=== PATIENT | male | born 2000 | race Caucasian/White ===

== ENCOUNTER 2021-07-19 00:28 | Inpatient (IN) ==
[2021-07-19] MEDS ORDERED: FAMOTIDINE 20MG IV PUSH 20 MG/5 ML SYR IV STA (00:52)
[2021-07-19] MEDS ORDERED: ONDANSETRON INJ 2 MG/ML 2 ML VIAL IV STA (00:52)
[2021-07-19 01:08] LABS: Basophils # (auto) 0.01 K/uL (0-0.2); Basophils % (auto) 0.1 %; Eosinophils # (auto) 0.08 K/uL (0-0.5); Eosinophils % (auto) 0.8 %; Hematocrit (blood only) 47.7 % (42-52); Hemoglobin 16.4 g/dL (14.0-18.0); Immature Granulocytes # (auto) 0.02 K/uL (0.00-0.02); Immature Granulocytes % (auto) 0.2 %; Lymphocytes # (auto) 2.23 K/uL (1.2-3.4); Lymphocytes % (auto) 21.3 %; Mean Corpuscular Hemoglobin 28.9 pg (25-34); Mean Corpuscular Hgb Conc 34.4 g/dL (32-36); Mean Platelet Volume 9.3 fL (7.4-10.4); Monocytes # (auto) 0.81 K/uL (0.11-0.59); Monocytes % (auto) 7.7 %; Neutrophils # (auto) 7.34 K/uL (1.4-6.5); Neutrophils % (auto) 69.9 %; Platelet Count 232 K/uL (130-400); RDW Coefficient of Variation 12.9 % (11.5-14.5); RDW Standard Deviation 38.8 fL (36.4-46.3); Red Blood Count 5.68 M/uL (4.7-6.1); White Blood Count 10.49 K/uL (4.8-10.8)
[2021-07-19] MEDS: HYDROmorphone INJ 0.5 MG/0.5 ML SYR IV STA ×2 (01:16→01:22)
--- NOTE | 2021-07-19 01:37 | Emergency Department Note ---
Impression & Plan Acute pancreatitis Admit to the [facility] service ED Provider Note NAME: NAIMA WALSH AGE: 20 SEX: M ARRIVES VIA: Walk-In INFORMANT: Patient ED PROVIDER(S): Iliana Farmer DO CHIEF COMPLAINT: Abdominal pain PLAN: Disposition: Admit to the [facility] service Condition: Guarded MEDICAL DECISION MAKING: This is a 20-year-old male patient who presents to the emergency department with right upper quadrant abdominal pain and epigastric pain. Patient was given IV Pepcid, Zofran and Dilaudid. Patient was bolused with IV normal saline solution. Laboratory studies showed evidence of an elevated lipase. He went for CT scan of the abdomen/pelvis to r ule out the possibility of pancreatitis. CT scan revealed evidence of necrotizing pancreatitis. The patient was kept n.p.o. He was started on a normal saline drip. A lactate was ordered. [facility]. Triage Nursing notes reviewed and agree with them. Vital Signs: reviewed and remarkable for hypertension Differential diagnosis: Pancreatitis, cholecystitis, gastritis, ulcerative disease ER treatment provided: IV Zofran IV Pepcid IV Dilaudid Diagnostics interpreted by me: Cardiac Monitoring: Normal sinus rhythm at 68 Laboratory studies: See below Imaging studies: As per stat rad Diffuse peripancreatic stranding surrounding the necrotic head and uncinate process. Mildly decreased attenuation of the proximal body. Additional mild hypoattenuation within the head and uncinate process which may be due to interstitial fluid. Findings are concerning for acute pancreatitis, possibly ne crotizing pinker toes. Consider multiphasic imaging or MRI. Patent splenic vein. Duodenal thickening with submucosal hyperenhancement, likely reactive. Fluid noted layering anteriorly along the right renal fascia. This is likely reactive. Normal appendix. No other acute findings. HPI: 20/M arrives for evaluation of right upper quadrant abdominal pain and epigastric pain. He describes waking up yesterday morning with some epigastric abdominal pain and nausea. He went to class and had to leave class early because of the symptoms and then vomited. Throughout the day, the patient had a decreased appetite. Patient does admit that he had 7 or 8 beers on Sunday night but did not vomit and this was not out of the ordinary for him. He describes having a similar episode of upper abdominal pain approximately 2 years ago for which he was seen in the emergency department. At that time, he had a CT scan which showed evidence of gastritis. ROS: See above HPI for pertinent positives & negatives. A total of 10 systems reviewed and were otherwise negative. PAST MEDICAL HISTORY:Gastritis; the patient tells me that he has recently lost 65-70 pounds in the past 9 months as he was trying to; he has a history of hypertension. 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 He occasionally drinks alcohol. HOME MEDICATIONS:Multivitamin ALLERGIES:None VITALS:See Below PHYSICAL EXAMINATION: HEENT: Head - normocephalic and atraumatic Pupils are equal, round, and reactive to light. Extraocular eye muscles are intact, and sclera are anicteric. Nose - moist nasal mucosa without discharge. Mouth - moist buccal mucosa. Oropharynx is nonerythematous and there is no tonsillar exudate or edema noted. Neck: Supple; no JVD, nuchal rigidity, cervical lymphadenopathy, or auscultated bruits. Heart: Regular rate and rhythm. There is a normal S1 and S2 with no murmurs, clicks, or gallops appreciated. Lungs: Clear to auscultation bilaterally with no wheezes, rales, or rhonchi. Abdomen: Soft, moderate tenderness to palpation in the epigastrium and right upper quadrant. The rest of the abdomen is nondistended, with good bowel sounds. There are no palpable pulsatile masses or hepatosplenomegaly. There is no guarding, rigidity, or rebound noted. Extremities: No evidence of cyanosis, clubbing, or edema. There are easily palpable peripheral pulses. Skin: warm and dry with good turgor and no rashes. ED COURSE: Times/Reassessments: 0040: The patient was evaluated in room A9. A complete history and physical was performed. The patient was medicated with IV Pepcid, IV Zofran, and IV Dilaudid. The patient was given a 1 L bolus of IV normal saline solution. He will go for CT scan of the abdomen/pelvis. The patient was feeling somewhat better. I reviewed the results of the CT scan with the patient. He will be kept n.p.o. He was started on a normal saline drip. A lactic acid was ordered. I discussed the case with the [facility] hospitalist and they will evaluate for further management. Iliana Farmer DO Past Med/Surg History Social History Smoking Status: Never smoker Preferred Language: Romanian Feels Safe at Home: Yes Allergies Allergies Allergy/AdvReac Type Severity Reaction Status Date / Time No Known Allergies Allergy Verified 07/19/21 00:38 Home Meds Home Medications Medication Instructions Recorded Confirmed multivitamin 1 tab PO DAILY 07/19/21 07/19/21 Results & Data (ED) Vital Signs Vital Signs - 24 hr 07/19/21 00:29 07/19/21 00:52 07/19/21 01:40 Temperature 36.5 C Temperature Source Temporal Artery Scan Pulse Rate 79 60 68 Pulse Rhythm Regular Respiratory Rate 20 22 18 Blood Pressure 196/110 H Blood Pressure Mean 138 Pulse Oximetry 98 98 98 Oxygen Delivery Method Room Air Room Air Room Air Sepsis Recent Fever Within 48 Hours No Sepsis New/Unexplained Change in Mental Status N/A Sepsis Action Taken by Nursing No Action Required 07/19/21 01:50 07/19/21 02:00 07/19/21 02:10 Temperature Temperature Source Pulse Rate 64 61 58 L Pulse Rhythm Respiratory Rate 17 17 17 Blood Pressure 139/95 Blood Pressure Mean 109 Pulse Oximetry 98 98 97 Oxygen Delivery Method Room Air Room Air Room Air Sepsis Recent Fever Within 48 Hours Sepsis New/Unexplained Change in Mental Status Sepsis Action Taken by Nursing 07/19/21 02:20 07/19/21 02:30 07/19/21 02:40 Temperature Temperature Source Pulse Rate 62 57 L 69 Pulse Rhythm Respiratory Rate 15 14 14 Blood Pressure Blood Pressure Mean Pulse Oximetry 98 98 98 Oxygen Delivery Method Room Air Room Air Room Air Sepsis Recent Fever Within 48 Hours Sepsis New/Unexplained Change in Mental Status Sepsis Action Taken by Nursing 07/19/21 02:50 07/19/21 03:00 Temperature Temperature Source Pulse Rate 81 57 L Pulse Rhythm Respiratory Rate 19 20 Blood Pressure 150/87 H Blood Pressure Mean 108 Pulse Oximetry 98 98 Oxygen Delivery Method Room Air Room Air Sepsis Recent Fever Within 48 Hours Sepsis New/Unexplained Change in Mental Status Sepsis Action Taken by Nursing Laboratory Data Result diagrams: 07/19/21 01:00 07/19/21 01:00 Lab Results 07/19/21 07/19/21 07/19/21 Range/Units 01:00 01:00 01:00 WBC 10.49 (4.8-10.8) K/uL RBC 5.68 (4.7-6.1) M/uL Hgb 16.4 (14.0-18.0) g/dL Hct 47.7 (42-52) % MCV 84.0 (80-100) fL MCH 28.9 (25-34) pg MCHC 34.4 (32-36) g/dL RDW Std Deviation 38.8 (36.4-46.3) fL RDW Coeff of Blane 12.9 (11.5-14.5) % Plt Count 232 (130-400) K/uL MPV 9.3 (7.4-10.4) fL Immature Gran % (Auto) 0.2 % Neut % (Auto) 69.9 % Lymph % (Auto) 21.3 % [place] % (Auto) 7.7 % Eos % (Auto) 0.8 % Baso % (Auto) 0.1 % Neut # (Auto) 7.34 H (1.4-6.5) K/uL Lymph # (Auto) 2.23 (1.2-3.4) K/uL [place] # (Auto) 0.81 H (0.11-0.59) K/uL Eos # (Auto) 0.08 (0-0.5) K/uL Baso # (Auto) 0.01 (0-0.2) K/uL Immature Gran # (Auto) 0.02 (0.00-0.02) K/uL Sodium Cancelled 139 Potassium Cancelled 3.2 L Chloride Cancelled 104 Carbon Dioxide Cancelled 24 Anion Gap Cancelled 11 BUN Cancelled 11 Creatinine Cancelled 0.99 Est Cr Clr Drug Dosing Cancelled 144.2 Est GFR ( Amer) Cancelled 126.5 Est GFR (Non-Af Amer) Cancelled 109.2 BUN/Creatinine Ratio Cancelled 11.1 Glucose Cancelled 106 H Calcium Cancelled 9.4 Total Bilirubin Cancelled 0.9 AST Cancelled 18 ALT Cancelled 22 Alkaline Phosphatase Cancelled 65 Total Protein Cancelled 8.0 Albumin Cancelled 4.7 Globulin Cancelled 3.3 Albumin/Globulin Ratio Cancelled 1.4 Lipase Cancelled 687 H Administered Medications Discontinued Medications Hydromorphone HCl (Hydromorphone Inj 0.5 Mg/0.5 Ml Syr) 0.5 mg IV NOW STA Stop: 07/19/21 00:53 Last Admin: 07/19/21 01:22 Dose: 0.5 mg Documented by: [id number] Famotidine (Pepcid 20mg Iv Push) 20 mg in 5 mls @ 2.5 mls/min IV NOW STA Stop: 07/19/21 00:53 Last Admin: 07/19/21 01:19 Dose: 2.5 mls/min Documented by: [id number] Sodium Chloride (Nss 1000ml) 1,000 mls @ 999 mls/hr IV .Q1H1M ONE Stop: 07/19/21 04:08 Last Infusion: 07/19/21 04:25 Dose: 0 mls/hr Documented by: [id number] Admin: 07/19/21 03:15 Dose: 999 mls/hr Documented by: [id number] Ioversol (Optiray 320 100ml) 100 ml IV ONCE ONE Stop: 07/19/21 03:38 Last Admin: 07/19/21 03:38 Dose: 93 ml Documented by: [id number] Ondansetron HCl (Ondansetron Inj 2 Mg/Ml 2 Ml Vial) 4 mg IV NOW STA Stop: 07/19/21 00:53 Last Admin: 07/19/21 01:18 Dose: 4 mg Documented by: [id number] Discharge Plan Visit Data Chief Complaint: Abdominal Pain Stated Complaint: STOMACH PAINS ED Provider: Iliana Farmer Discharge Problem: Acute pancreatitis Forms Stand Alone Forms: [employer] Prescriptions Prescriptions: No Action multivitamin Tablet 1 tab PO DAILY RF: 0 Referrals Referrals: PCP,NO [Primary Care Provider] - Discharge Problem: Acute pancreatitis Qualifiers: Pancreatitis type: unspecified pancreatitis type Acute pancreatitis complication: uninfected necrosis Qualified Code(s): K85.91 - Acute pancreatitis with uninfected necrosis, unspecified
[2021-07-19 02:51] LABS: BUN Creatinine Ratio 11.1 (10-20); Calcium 9.4 mg/dl (8.5-10.1); Creatinine Clr Calc Pharmacy 144.2 ml/min; Est GFR (African American) 126.5 ml/min; Est GFR (Non-African American) 109.2 ml/min; Potassium 3.2 mmol/L (3.5-5.1)
[2021-07-19 03:05] LABS: Albumin Globulin Ratio 1.4 (0.9-2); Albumin Level 4.7 gm/dl (3.4-5.0); Bilirubin,Total 0.9 mg/dl (0.2-1.0); Globulin 3.3 gm/dl (2.5-4.0)
[2021-07-19] MEDS ORDERED: SODIUM CHLORIDE 0.9% 1000ML 1,000 ML IV ONE (03:08)
[2021-07-19] MEDS ORDERED: OPTIRAY 320 100ml IV ONE (03:37)
[2021-07-19] MEDS ORDERED: SODIUM CHLORIDE 0.9% 500 ML IV SCH (05:00)
--- NOTE | 2021-07-19 06:02 | History & Physical Report ---
Date of Service July 19, 2021 Assessment & Plan (1) Acute pancreatitis: Plan: 20yo male presenting with acute pancreatitis with possible necrosis. [place]=196, epigastric pain/nausea, CT findings as above. Possibly secondary to EtOH use. No gallstones noted. Patient is afebrile, HD stable, non-toxic in appearance. Labs and images are largely unremarkable with no evidence of end-organ damage. Ca=9.4 No obvious infection at this time - will hold off on empiric antibiotics for now. -Admit to medical with telemetry -Keep NPO -IVF -LR at 250mL/hr x 3 liters ordered to begin on the floor -Check Lipid panel -Zofran PRN nausea -Morphine PRN pain -Monitor I/Os, UOP closely -General Surgery consultation appreciated -Consider additional imaging today - ?MRI Abdomen (2) Elevated blood pressure reading without diagnosis of hypertension: Plan: Patient reports having elevated blood pressure readings in the past. Does not have diagnosis of HTN and has never been on medication. At this time, pain/nausea/anxiety most likely contributing significantly to elevated blood pressure reading. -Continue to monitor Plan: F/E/N -LR at 250mL/hg x 3 liters, electroltyes WNL, NPO Ppx - Low risk for DVT Code - Full per discussion with patient Dispo -Admit to medical with telemetry History of Present Illness Chief Complaint: abdominal pain Primary Care Provider: NO PCP Navneet Contreras is a pleasant 20yo male with no significant past medical history presenting with acute pancreatitis. Patient was in his usual state of health until yesterday AM when he woke with some mild epigastric abdominal pain and nausea. He ate breakfast - eggs x 2 which worsened his abdominal pain. He went to class and had worsening of his abdominal pain and nausea causing him to leave class and return home. He vomited several times throughout the day - non/bloody - non/bilious. Tried to eat some bland food which again worsened his abdominal pain. Patient unable to sleep due to pain last night which prompted him to come to the ER. No prior history of pancreatitis. He did have a similar pain appx 2 years ago which was less severe and self-limiting. Workup at that time was negative. No history of gallstones. He does drink EtOH on the weekends - typically will consume 14-20 beers over two nights/week (averages 7-10 drinks/night on weekends). He drank this amount this past weekend. No new medications No recreational substance use Patient has recently lost a considerable amount of weight through diet and exercise - appx 70# He reports subjective fevers and chills earlier last night. Otherwise denies chest pain, cough, SOB, diarrhea ER Course: Afebrile, HD stable, Pepcid, Dilaudid, Zofran, NSS x 1L bolus then 125mL/hr Allergies Allergy/AdvReac Type Severity Reaction Status Date / Time No Known Allergies Allergy Verified 07/19/21 00:38 Home Medications Medication Instructions Recorded Confirmed Type multivitamin 1 tab PO DAILY 07/19/21 07/19/21 History Past Med/Surg History Medical History (Updated 07/19/21 @ 05:52 by Jessica Rodriges DO) Elevated blood pressure reading without diagnosis of hypertension Surgical History (Updated 07/19/21 @ 05:52 by Jessica Rodriges DO) No significant past surgical history Family History (Updated 07/19/21 @ 05:52 by Jessica Rodriges DO) Other Hypertension Social History (Updated 07/19/21 @ 05:52 by Jessica Rodriges DO) Smoking Status: Never smoker Hx Alcohol Use: Yes Hx Substance Use: No Preferred Language: Kyrgyz Feels Safe at Home: Yes Review of Systems Review of Systems: All systems reviewed & are unremarkable except as noted in HPI & below Physical Exam Physical Exam: General: patient resting comfortably, NAD, non-toxic in appearance, AA&O x 4 Skin: warm, dry, intact, no rashes or lesions HEENT: NC/AT, PERRL, EOMI, anicteric sclera, conjunctiva without injection, external ear normal to inspection and nontender, nares patent, moist mucus membranes, dentition intact, no oropharyngeal lesions, neck supple, trachea midline, no LAD, no thyromegaly, no JVD Heart: +S1/S2, regular, no m/r/g Lungs: equal air entry bilaterally, no rales/rhonchi/wheezes Abd: +BS, soft, epigastric tenderness without rebound/guarding Ext: warm, 2+ pulses in UE/LE bilaterally, no clubbing/cyanosis or edema Neuro: nonfocal, patient AA&O x 4, speech intact, no facial droop, moving all extremities on command with equal strength 5/5 Results & Data Results & Data ([facility]) Vital Signs (Past 12 Hours) Vital Signs Temp Pulse Resp BP Pulse Ox 07/19/21 03:00 57 L 20 150/87 H 98 07/19/21 02:50 81 19 98 07/19/21 02:40 69 14 98 07/19/21 02:30 57 L 14 98 07/19/21 02:20 62 15 98 07/19/21 02:10 58 L 17 97 07/19/21 02:00 61 17 139/95 98 07/19/21 01:50 64 17 98 07/19/21 01:40 68 18 98 07/19/21 00:52 60 22 98 07/19/21 00:29 36.5 C 79 20 196/110 H 98 Laboratory Results Laboratory Results WBC 10.49 K/uL (4.8-10.8) 07/19/21 01:00 RBC 5.68 M/uL (4.7-6.1) 07/19/21 01:00 Hgb 16.4 g/dL (14.0-18.0) 07/19/21 01:00 Hct 47.7 % (42-52) 07/19/21 01:00 MCV 84.0 fL (80-100) 07/19/21 01:00 MCH 28.9 pg (25-34) 07/19/21 01:00 MCHC 34.4 g/dL (32-36) 07/19/21 01:00 RDW Std Deviation 38.8 fL (36.4-46.3) 07/19/21 01:00 RDW Coeff of Blane 12.9 % (11.5-14.5) 07/19/21 01:00 Plt Count 232 K/uL (130-400) 07/19/21 01:00 MPV 9.3 fL (7.4-10.4) 07/19/21 01:00 Immature Gran % (Auto) 0.2 % 07/19/21 01:00 Neut % (Auto) 69.9 % 07/19/21 01:00 Lymph % (Auto) 21.3 % 07/19/21 01:00 [place] % (Auto) 7.7 % 07/19/21 01:00 Eos % (Auto) 0.8 % 07/19/21 01:00 Baso % (Auto) 0.1 % 07/19/21 01:00 Neut # (Auto) 7.34 K/uL (1.4-6.5) H 07/19/21 01:00 Lymph # (Auto) 2.23 K/uL (1.2-3.4) 07/19/21 01:00 [place] # (Auto) 0.81 K/uL (0.11-0.59) H 07/19/21 01:00 Eos # (Auto) 0.08 K/uL (0-0.5) 07/19/21 01:00 Baso # (Auto) 0.01 K/uL (0-0.2) 07/19/21 01:00 Immature Gran # (Auto) 0.02 K/uL (0.00-0.02) 07/19/21 01:00 Sodium 139 mmol/L (136-145) 07/19/21 01:00 Sodium Cancelled 07/19/21 01:00 Potassium 3.2 mmol/L (3.5-5.1) L 07/19/21 01:00 Potassium Cancelled 07/19/21 01:00 Chloride 104 mmol/L (98-107) 07/19/21 01:00 Chloride Cancelled 07/19/21 01:00 Carbon Dioxide 24 mmol/L (21-32) 07/19/21 01:00 Carbon Dioxide Cancelled 07/19/21 01:00 Anion Gap 11 (3-11) 07/19/21 01:00 Anion Gap Cancelled 07/19/21 01:00 BUN 11 mg/dl (6-23) 07/19/21 01:00 BUN Cancelled 07/19/21 01:00 Creatinine 0.99 mg/dl (0.6-1.4) 07/19/21 01:00 Creatinine Cancelled 07/19/21 01:00 Est Cr Clr Drug Dosing 144.2 ml/min 07/19/21 01:00 Est Cr Clr Drug Dosing Cancelled 07/19/21 01:00 Est GFR ( Amer) 126.5 ml/min 07/19/21 01:00 Est GFR ( Amer) Cancelled 07/19/21 01:00 Est GFR (Non-Af Amer) 109.2 ml/min 07/19/21 01:00 Est GFR (Non-Af Amer) Cancelled 07/19/21 01:00 BUN/Creatinine Ratio 11.1 (10-20) 07/19/21 01:00 BUN/Creatinine Ratio Cancelled 07/19/21 01:00 Glucose 106 mg/dl (70-99(Fasting)) H 07/19/21 01:00 Glucose Cancelled 07/19/21 01:00 Lactate 0.8 mmol/L (0.4-2.0) 07/19/21 05:06 Calcium 9.4 mg/dl (8.5-10.1) 07/19/21 01:00 Calcium Cancelled 07/19/21 01:00 Total Bilirubin 0.9 mg/dl (0.2-1.0) 07/19/21 01:00 Total Bilirubin Cancelled 07/19/21 01:00 AST 18 U/L (13-39) 07/19/21 01:00 AST Cancelled 07/19/21 01:00 ALT 22 U/L (7-52) 07/19/21 01:00 ALT Cancelled 07/19/21 01:00 Alkaline Phosphatase 65 U/L (34-104) 07/19/21 01:00 Alkaline Phosphatase Cancelled 07/19/21 01:00 Total Protein 8.0 gm/dl (6.0-8.3) 07/19/21 01:00 Total Protein Cancelled 07/19/21 01:00 Albumin 4.7 gm/dl (3.4-5.0) 07/19/21 01:00 Albumin Cancelled 07/19/21 01:00 Globulin 3.3 gm/dl (2.5-4.0) 07/19/21 01:00 Globulin Cancelled 07/19/21 01:00 Albumin/Globulin Ratio 1.4 (0.9-2) 07/19/21 01:00 Albumin/Globulin Ratio Cancelled 07/19/21 01:00 Lipase 687 U/L (11-82) H 07/19/21 01:00 Lipase Cancelled 07/19/21 01:00 SARS-CoV-2, RNA, NAAT NEGATIVE (NEGATIVE) 07/19/21 05:[address] Abdomen and Pelvis with Contrast - per STAT rad - diffuse peripancreatic stranding surrounding the necrotic head and uncinate process. Mildly decreased attenuation of the proximal body. Additional mild hypoattenuation within the head and uncinate process which may be due to interstitial fluid. Findings are concerning for acute pancreatitis, possibly necrotizing pancreatitis. Consider multiphasic imaging or MRI. Patent splenic vein. Duodenal thickening with submucosal hyperenhancement likely reactive. Fluid noted layering anteriorly along the right renal fascia. This is likely reactive. Normal appendix. No other acute findings. Code Status & VTE Plan VTE Prophylaxis Plan VTE Prophylaxis will be ordered: No PG Care Time/CCT Total # of Minutes Spent Total Time Spent with Patient: Total time spent is greater than 50% in coordination of care (as documented) at patient's floor/unit and/or counseling patient: Coding Level of Care Code 84266 Initial Inpt Care Lvl 2 Diagnoses Acute pancreatitis K85.91 Acute pancreatitis complication: uninfected necrosis Pancreatitis type: unspecified pancreatitis type Elevated blood pressure reading without diagnosis of hypertension R03.0 (1) Acute pancreatitis Acute pancreatitis complication: uninfected necrosis Pancreatitis type: unspecified pancreatitis type Qualified Code(s): K85.91 - Acute pancreatitis with uninfected necrosis, unspecified
[2021-07-19] MEDS ORDERED: MoRPHine SULFATE 2 MG/ML CARP IV PRN (06:34)
[2021-07-19] MEDS ORDERED: MoRPHine SULFATE 4 MG/ML 1 ML CARP\\VIAL IV PRN (06:34)
[2021-07-19] MEDS ORDERED: ONDANSETRON INJ 2 MG/ML 2 ML VIAL IV PRN (06:34)
[2021-07-19] MEDS ORDERED: DOCUSATE SODIUM 100 MG CAP PO PRN (06:34)
[2021-07-19] MEDS ORDERED: ACETAMINOPHEN 325 MG TAB PO PRN (06:34)
--- NOTE | 2021-07-19 07:25 | CT Scan Report ---
CT SCAN OF THE ABDOMEN AND PELVIS WITH IV CONTRAST CLINICAL HISTORY: Right-sided abdominal pain. COMPARISON STUDY: No priors. TECHNIQUE: Following the IV administration of 93 cc of Optiray 320, CT scan of the abdomen and pelvi s is performed from the lung bases to the proximal femora. Images are reviewed in the axial, sagittal , and coronal planes. IV contrast was administered without complication. A dose lowering technique wa s utilized adhering to the principles of ALARA. CT DOSE: 820.90 mGy.cm FINDINGS: Lung bases: The heart is normal in size and without pericardial effusion. The lung bases are clear. Liver: The contrast-enhanced liver is normal in size, contour, and attenuation. There is no intrahepa tic biliary ductal dilatation. The hepatic veins and portal veins are patent. Gallbladder: Unremarkable. Spleen: Normal in size and attenuation. Pancreas: The pancreas appears edematous. Inflammatory stranding and fluid is seen around the pancrea tic head and proximal body. The appearance is consistent with acute pancreatitis. The gland enhances throughout. The pancreatic duct is normal in caliber. No organized peripancreatic fluid collection is identified. The splenic vein is patent. Fluid is seen tracking inferiorly within the retroperitoneal space. Adrenal glands: Unremarkable. Kidneys: The contrast enhanced kidneys are normal in size and without hydronephrosis. The kidneys enh ance symmetrically. Abdominal vasculature: The abdominal aorta is normal in course and caliber. Bowel: There is no bowel obstruction. Mild to moderate fecal retention is seen throughout the colon. Mild wall thickening of the duodenum is likely related to adjacent pancreatitis. The appendix is wel l-visualized and normal. Peritoneum: No intraperitoneal free air is seen. There is trace free fluid in the right paracolic gut ter and pelvis. There is a fat-containing umbilical hernia. Lymphadenopathy: Prominent upper abdominal lymph nodes are likely reactive. Pelvic viscera: The bladder, prostate, and seminal vesicles are normal as visualized. Skeletal structures: No lytic or blastic lesions are seen. IMPRESSION: 1. Findings are consistent with acute pancreatitis. 2. The gland enhances throughout. There is no evidence of necrosis and no organized peripancreatic fl uid collection is identified. 3. Mild wall thickening of the duodenum is likely related to acute pancreatitis. 4. Trace free fluid in the abdomen and pelvis is likely reactive. ACT 112: Negative or not required by law. Electronically signed by: Goyo Delvalle M.D. 07/19/2021 7:23 AM
[2021-07-19] MEDS: LACTATED RINGER'S 1,000 ML IV SCH ×3 (08:06→16:12)
[2021-07-19 10:13] LABS: Appearance Urine Clear (Clear); Bilirubin Urine Negative (Negative); Blood Urine Negative (Negative); Color Urine Yellow; Glucose Urine UA Negative (Negative); Ketones Urine Negative (Negative); Leukocyte Esterase Urine Negative (Negative); Nitrite Urine Negative (Negative); Protein Urine Negative (Negative); Specific Gravity Urine 1.013 (1.000-1.030); Urobilinogen Urine Negative (Negative)
--- NOTE | 2021-07-19 13:12 | Communication Note ---
Date of Service: July 19, 2021 CT further reviewed by our radiologist who determined that there is no necrosis of the pancreas. Now currently treating as acute pancreatitis. Patient is able to eat as tolerated and receiving aggressive fluid hydration. No antibiotics indicated at this time. Counseled patient about lifestyle modifications, especially reducing binge drinking episodes and continue his weight loss journey. When patient is discharged, patient will follow up with me at the resident clinic. Attending attestation Pt seen and examined in concert with Dr. Yanez. In agreement with the documented findings as noted in the resident documentation with any exceptions or additions as noted here. Improving epigastric abdominal pain and resolving nausea. On examination, S1/S2 nl RRR no MCG. CTAB. Abd ND BS+ve, epigastric TTP mildly Acute pancreatitis, likely alcohol induced - counseling provided re: modulation/discontinuation of consumption. Continue to hydrate and advance diet as tolerated (will try clears for lunch)
[2021-07-19] MEDS ORDERED: diphenhydrAMINE Capsule 25 MG CAP PO PRN (18:32)
[2021-07-19] MEDS ORDERED: MELATONIN 3 MG TAB PO PRN (18:32)
--- NOTE | 2021-07-20 07:21 | Discharge Summary ---
Date of Service July 20, 2021 Admission HPI Per Admitting Provider Navneet Contreras is a pleasant 20yo male with no significant past medical history presenting with acute pancreatitis. Patient was in his usual state of health until yesterday AM when he woke with some mild epigastric abdominal pain and nausea. He ate breakfast - eggs x 2 which worsened his abdominal pain. He went to class and had worsening of his abdominal pain and nausea causing him to leave class and return home. He vomited several times throughout the day - non/bloody - non/bilious. Tried to eat some bland food which again worsened his abdominal pain. Patient unable to sleep due to pain last night which prompted him to come to the ER. No prior history of pancreatitis. He did have a similar pain appx 2 years ago which was less severe and self-limiting. Workup at that time was negative. No history of gallstones. He does drink EtOH on the weekends - typically will consume 14-20 beers over two nights/week (averages 7-10 drinks/night on weekends). He drank this amount this past weekend. No new medications No recreational substance use Patient has recently lost a considerable amount of weight through diet and exercise - appx 70# He reports subjective fevers and chills earlier last night. Otherwise denies chest pain, cough, SOB, diarrhea ER Course: Afebrile, HD stable, Pepcid, Dilaudid, Zofran, NSS x 1L bolus then 125mL/hr Principal Diagnosis 30 Discharge Exam Constitutional WD/WN, vitals as above Eyes PERRL, conjunctivae normal, anicteric sclerae Neck normal visual inspection and trachea midline Respiratory normal respiratory effort, lungs clear to auscultation Cardiovascular RRR, no murmur, no edema Gastrointestinal (Abdomen) Inspection/Auscultation: abdomen normal to inspection and normal bowel sounds Percussion/Palpation: + abdomen tender (Left upper quadrant) and abdomen soft Musculoskeletal Head/Neck/Chest: normocephalic and head atraumatic Skin no rashes, warm and dry Neurologic moves all extremities Psychiatric A+Ox3, euthymic affect Discharge Data Allergies Allergy/AdvReac Type Severity Reaction Status Date / Time No Known Allergies Allergy Verified 07/19/21 00:38 Consultations 07/19/21 04:47 ED Decision to Admit Stat Ordered Studies 07/19/21 03:08 CT abd pelvis IV con only Urgent Hospital Course (1) Acute pancreatitis: Patient is a 20-year-old male with no significant past medical history presenting to the hospital for acute pancreatitis. Patient received aggressive fluid resuscitation and pain control. -Admitted to medical with telemetry -Patient was refed starting at full liquids and titrated up as tolerated. -IVF -LR at 250mL/hr x 3 liters given during hospitalization -Lipid panel was ordered and was within normal limits. -While patient was here he was also counseled on lifestyle modification and his drinking habits. -Zofran PRN nausea -Morphine PRN pain -Monitor I/Os, UOP closely' -Follow-up with Dr. Grant in 1 week. (2) Elevated blood pressure reading without diagnosis of hypertension: Patient reports having elevated blood pressure readings in the past. Does not have diagnosis of HTN and has never been on medication. At this time, pain/nausea/anxiety most likely contributing significantly to elevated blood pressure reading. -Continue to monitor, no blood pressure medication started during hospitalization. Defer to PCP. Total Time Total Time Spent Total Time Spent (In Minutes): 30 Discharge Plan Discharge Items Patient Disposition: Home - Self-Care Reason For Visit: PANCREATITIS, ?NECROSIS Discharge Diagnosis: Acute pancreatitis Activity: Per Instructions section Non-emergency contact: Primary Care Provider Call non-emergency contact if: you have any medication questions and your symptoms worsen Follow-up/Referrals: Jaime Grant DO [Primary Care Provider] - 07/27/21 1:30 pm (Hospital follow up with primary care. Dr. Grant is one of Dr. Yanez's associates.) Diet: Regular Addtl Attending Provider Instructions: You came to the hospital for concern for abdominal pain. While you are here you had a CT scan of your abdomen which did reveal acute pancreatitis. This was likely due to your binge drinking habits that we discussed in the room together. While you were here you received aggressive fluid resuscitation and were monitored while you attempted to eat. At the time of discharge it seems that your abdominal pain has improved and your appetite had also gotten better. At this time we feel it is safe for you to return home with follow-up with Dr. Danny Yanez within 1 week. He has been a pleasure to be a part of your care and we wish you the best of both your health and recovery. Pending Studies at Discharge: No Stand-Alone Forms: My [facility] [employer], Smoking Cessation Medications and DC Order Prescriptions: Continued multivitamin Tablet 1 tab PO DAILY RF: 0 Discharge Orders: Discharge Order (Routine); Ordered 07/20/21 Ordered By: Fercho Qiu/Other Patient Handouts: Pancreatitis Acute Dc Admission Data Admit Date/Time: 07/19/21 05:25 Attending Provider: Chaka Childs Admit Provider: Jessica Rodriges Primary Care Provider: Jaime Grant Other Providers: Jessica Rodriges Other Interventions: Discharge Summary Assessment (RN) Last Done: 07/20/21 10:33 Supervising Physician Co-Signing Physician Notes Attending attestation Pt seen and examined in concert with Dr. Yanez. In agreement with the documented findings as noted in the resident documentation with any exceptions or additions as noted here. Improving epigastric abdominal pain with return of appetite and tolerance of full diet without n/v. On examination, S1/S2 nl RRR no MCG. CTAB. Abd nondistended, epigastric TTP BS+ve Acute pancreatitis in the setting of binge alcohol use - encourage hydration, POI and counseling regarding avoidance of triggering factors including alcohol use. Else see resident documentation as noted. Total attending time spent on this patient's care on the day of discharge: 35 minutes
[2021-07-20 08:16] LABS: Basophils # (auto) 0.01 K/uL (0-0.2); Basophils % (auto) 0.1 %; Eosinophils # (auto) 0.12 K/uL (0-0.5); Eosinophils % (auto) 1.7 %; Hemoglobin 15.1 g/dL (14.0-18.0); Immature Granulocytes # (auto) 0.02 K/uL (0.00-0.02); Immature Granulocytes % (auto) 0.3 %; Lymphocytes # (auto) 1.72 K/uL (1.2-3.4); Lymphocytes % (auto) 23.9 %; Mean Corpuscular Hemoglobin 28.7 pg (25-34); Mean Corpuscular Hgb Conc 33.6 g/dL (32-36); Mean Corpuscular Volume 85.4 fL (80-100); Mean Platelet Volume 9.3 fL (7.4-10.4); Monocytes # (auto) 0.77 K/uL (0.11-0.59); Monocytes % (auto) 10.7 %; Neutrophils # (auto) 4.55 K/uL (1.4-6.5); Neutrophils % (auto) 63.3 %; Platelet Count 216 K/uL (130-400); RDW Standard Deviation 40.6 fL (36.4-46.3); Red Blood Count 5.27 M/uL (4.7-6.1); White Blood Count 7.19 K/uL (4.8-10.8)
[2021-07-20 08:46] LABS: Albumin Level 4.2 gm/dl (3.4-5.0); BUN Creatinine Ratio 7.1 (10-20); Bilirubin Direct 0.2 mg/dl (0-0.2); Bilirubin,Total 1.2 mg/dl (0.2-1.0); Calcium 9.3 mg/dl (8.5-10.1); Creatinine Clr Calc Pharmacy 167.9 ml/min; Est GFR (African American) 145.4 ml/min; Est GFR (Non-African American) 125.4 ml/min; Potassium 3.7 mmol/L (3.5-5.1); Total Protein 7.1 gm/dl (6.0-8.3)
== END 2021-07-20 10:47 | disposition home or self-care (01) | DRG 440 ==
LOC: ED 00:28 → 2W 05:25 → SUATTDRO 05:25 → 2W 06:19